=== PATIENT | male | born 1955 | race Caucasian/White ===

== ENCOUNTER 2017-12-18 20:30 | Outpatient (CLI) | payer OTHER | END 2017-12-18 20:31 | disposition home or self-care (01) | LOC: SLEEPLAB 20:30 | PROVIDERS: ATTEND Internal Medicine | DX: G47.33 Obstructive sleep apnea (adult) (pediatric) (principal); R09.89 Other specified symptoms and signs involving the circulatory and respiratory systems; R06.83 Snoring; F41.9 Anxiety disorder, unspecified; F32.9 Major depressive disorder, single episode, unspecified; G47.00 Insomnia, unspecified; I10 Essential (primary) hypertension; J44.9 Chronic obstructive pulmonary disease, unspecified; R09.02 Hypoxemia | CPT/HCPCS: 95811 ==

== ENCOUNTER 2021-04-04 10:07 | Outpatient (CLI) | payer OTHER | END 2021-04-04 10:08 | disposition home or self-care (01) | LOC: BICRAD 10:07 | PROVIDERS: ATTEND Internal Medicine Critical Care Medicine | DX: R06.00 Dyspnea, unspecified (principal) | CPT/HCPCS: 71046 ==

== ENCOUNTER 2021-05-06 15:11 | Inpatient (IN) | payer BC, SELFPAY ==
[~2021-05-06 15:11] MED LIST: Iopamidol 370 76% 100 ML VIAL ONE
[2021-05-06 16:01] LABS: #Lymphocytes 0.9 thou/uL (1.20-3.40); #Monocytes 0.9 thou/uL (0.11-0.59); #Neutrophils 8.7 thou/uL (1.40-6.50); %Basophils 0.1 % (0.0-1.0); %Eosinophils 0.2 % (0.0-10.0); %Lymphocytes 8.3 % (21.0-51.0); %Monocytes 8.2 % (0.0-10.0); %Neutrophils 83.2 % (42.0-75.0); Mean Corpuscular HGB CONC 32.5 g/dL (32.0-36.0); Mean Corpuscular Hemoglobin 29.8 pg (27.0-31.0); Mean Corpuscular Volume 91.7 fL (78.0-98.0); Mean Platelet Volume 7.1 fL (7.4-10.4); Platelet Count 285 thou/uL (130-400); RBC Distribution Width 12.9 % (11.5-14.5); Red Blood Cell (RBC) Count 4.69 mill/uL (4.70-6.10); White Blood Cell (WBC) Count 10.5 thou/uL (4.8-10.8)
[2021-05-06 16:24] LABS: ALT (SGPT) 23 U/L (8-55); AST (SGOT) 25 U/L (5-34); Alkaline Phosphatase 62 U/L (40-110); Anion Gap 14 mmol/L (10-20); BUN (Urea Nitrogen) 12 mg/dL (8.4-25.7); Bilirubin, Total 0.7 mg/dL (0.2-1.2); Calc. Creatinine Clearance 0 mL/min (70-130); Calcium 9.8 mg/dL (7.8-10.44); Carbon Dioxide 26 mmol/L (23-31); Chloride 104 mmol/L (98-107); Globulin 3.1 g/dL (2.4-3.5); Glucose 107 mg/dL (80-115); Potassium 4.6 mmol/L (3.5-5.1); Protein, Total 7.1 g/dL (5.8-8.1); Sodium 139 mmol/L (136-145)
[2021-05-06] MEDS ORDERED: Nitroglycerin 0.4 MG TAB 1 EACH ONE (16:29)
[2021-05-06] MEDS ORDERED: Aspirin Chewable 81 MG TAB ONE (16:29)
[2021-05-06] MEDS ORDERED: Nitroglycerin 2% Ointment 1 INCH/1 GM Packet ONE ×2 (16:31→16:32)
[2021-05-06] MEDS ORDERED: Verapamil 5 MG/2 ML VIAL ONE (16:40)
[2021-05-06] MEDS ORDERED: Nitroglycerin 100MG/250ML BOT 250 ML ONE (16:40)
[2021-05-06] MEDS ORDERED: Lidocaine 1% (PF) 30 ML VIAL ONE (16:40)
[2021-05-06] MEDS ORDERED: Heparin 10,000 UNITS/ 10 ML VIAL ONE (16:40)
[2021-05-06] MEDS ORDERED: Aspirin 325 MG TAB ONE (16:40)
[2021-05-06] MEDS ORDERED: Acetaminophen 325 MG TAB PO PRN (16:43)
[2021-05-06] MEDS ORDERED: Midazolam HCl 2 mg/2 ml Vial ONE (17:05)
[2021-05-06] MEDS ORDERED: Fentanyl 100 MCG/2 ML VIAL ONE (17:05)
[2021-05-06 17:17] LABS: CKMB 12.7 ng/mL (0-6.6)
[2021-05-06] MEDS ORDERED: Nitroglycerin 0.4 MG TAB (25 Tab Bottle) SL PRN (17:34)
[2021-05-06] MEDS ORDERED: Acetaminophen/Codeine 30-300mg Tablet PO PRN (17:34)
[2021-05-06] MEDS ORDERED: Sodium Chloride 0.9% 200 ML IV PRN (17:34)
[2021-05-06] MEDS ORDERED: Sodium Chloride 0.9% 500 ML IV SCH (17:45)
[2021-05-06 19:53] LABS: Troponin I 32.469 ng/mL (< 0.028)
[2021-05-06] MEDS ORDERED: Albuterol 200 PUFF (6.7GM INHALER) INH PRN (21:16)
[2021-05-06] MEDS: Atorvastatin Calcium 40 MG TAB PO SCH (21:29)
[2021-05-06] MEDS: Enoxaparin Sodium 80 MG/0.8 ML SYRINGE SC SCH (21:30)
[2021-05-06 23:24] LABS: Troponin I 29.824 ng/mL (< 0.028)
[2021-05-07] MEDS ORDERED: Albuterol 200 PUFF (6.7GM INHALER) INH PRN (01:23)
[2021-05-07 05:20] LABS: #Basophils 0.1 thou/uL (0.0-0.2); #Eosinphils 0.1 thou/uL (0.0-0.7); #Lymphocytes 1.5 thou/uL (1.20-3.40); #Monocytes 1.2 thou/uL (0.11-0.59); #Neutrophils 5.5 thou/uL (1.40-6.50); %Basophils 0.9 % (0.0-1.0); %Eosinophils 1.7 % (0.0-10.0); %Lymphocytes 18.1 % (21.0-51.0); %Monocytes 13.9 % (0.0-10.0); %Neutrophils 65.4 % (42.0-75.0); Hemoglobin 12.7 g/dL (14.0-18.0); Mean Corpuscular HGB CONC 33.9 g/dL (32.0-36.0); Mean Corpuscular Hemoglobin 31.1 pg (27.0-31.0); Mean Corpuscular Volume 91.8 fL (78.0-98.0); Mean Platelet Volume 7.5 fL (7.4-10.4); Platelet Count 238 thou/uL (130-400); RBC Distribution Width 12.9 % (11.5-14.5); Red Blood Cell (RBC) Count 4.09 mill/uL (4.70-6.10); White Blood Cell (WBC) Count 8.4 thou/uL (4.8-10.8)
[2021-05-07 05:25] LABS: Hemoglobin A1c 5.4 % (4.0-6.0)
[2021-05-07 05:44] LABS: Anion Gap 11 mmol/L (10-20); BUN (Urea Nitrogen) 12 mg/dL (8.4-25.7); Calc. Creatinine Clearance 98 mL/min (70-130); Carbon Dioxide 28 mmol/L (23-31); Chloride 105 mmol/L (98-107); Cholesterol 160 mg/dl (< 200 Desired); Glucose 88 mg/dL (80-115); HDL Cholesterol 40 mg/dL (>60 Neg Risk); LDL Cholesterol, Calculated 103 mg/dL; Potassium 3.7 mmol/L (3.5-5.1); Sodium 140 mmol/L (136-145); Triglycerides 86 mg/dL (Less than 150)
[2021-05-07] MEDS ORDERED: Budesonide 0.5 MG/2 ML NEB NEB SCH (09:00)
[2021-05-07] MEDS: Aspirin 325 MG TAB PO SCH (09:31)
[2021-05-07] MEDS: Enoxaparin Sodium 80 MG/0.8 ML SYRINGE SC SCH ×3 (09:32→21:07)
[2021-05-07] MEDS: Atorvastatin Calcium 40 MG TAB PO SCH (21:06)
[2021-05-08 05:24] LABS: Anion Gap 10 mmol/L (10-20); BUN (Urea Nitrogen) 13 mg/dL (8.4-25.7); Calc. Creatinine Clearance 88 mL/min (70-130); Calcium 9.1 mg/dL (7.8-10.44); Carbon Dioxide 29 mmol/L (23-31); Chloride 103 mmol/L (98-107); Glucose 76 mg/dL (80-115); Potassium 3.8 mmol/L (3.5-5.1); Sodium 138 mmol/L (136-145)
[2021-05-08] MEDS ORDERED: Communication Order-Pharmacy FS SCH (06:00)
[2021-05-08] MEDS: Budesonide 0.5 MG/2 ML NEB NEB SCH (07:16)
[2021-05-08 07:25] LABS: Hemoglobin 13.3 g/dL (14.0-18.0); Mean Corpuscular HGB CONC 31.7 g/dL (32.0-36.0); Mean Corpuscular Hemoglobin 29.4 pg (27.0-31.0); Mean Corpuscular Volume 92.8 fL (78.0-98.0); Mean Platelet Volume 7.3 fL (7.4-10.4); Platelet Count 265 thou/uL (130-400); RBC Distribution Width 12.8 % (11.5-14.5); Red Blood Cell (RBC) Count 4.52 mill/uL (4.70-6.10); White Blood Cell (WBC) Count 8.2 thou/uL (4.8-10.8)
[2021-05-08] MEDS ORDERED: predniSONE 20 MG TAB PO SCH (08:00)
[2021-05-08] MEDS ORDERED: Azithromycin 250 MG TAB PO SCH (09:00)
[2021-05-08 09:20] LABS: Band 4 % (5-11); Lymphocytes 18 % (21-51); MDiff Complete? YES; Monocytes 12 % (0-10); Neutrophil 66 % (42-75); RBC Morphology Normal
[2021-05-08] MEDS: Aspirin 325 MG TAB PO SCH (09:32)
[2021-05-08] MEDS: Enoxaparin Sodium 80 MG/0.8 ML SYRINGE SC SCH ×2 (09:33→21:55)
[2021-05-08] MEDS: Fluticasone Propionate Nasal Spray 16 gm Bottle NASAL SCH (09:33)
[2021-05-08] MEDS: Atorvastatin Calcium 40 MG TAB PO SCH (21:55)
[2021-05-09] MEDS ORDERED: CEFAZOLIN 2 GM in Premix Bag 1 BAG IVPB SCH (04:15)
[2021-05-09] MEDS ORDERED: Hydrocortisone Sod Succ/PF 250 mg/2 ml Vial SLOW IVP SCH (05:00)
[2021-05-09 05:37] LABS: Anion Gap 11 mmol/L (10-20); BUN (Urea Nitrogen) 20 mg/dL (8.4-25.7); Calc. Creatinine Clearance 79 mL/min (70-130); Calcium 9.5 mg/dL (7.8-10.44); Carbon Dioxide 30 mmol/L (23-31); Chloride 103 mmol/L (98-107); Glucose 88 mg/dL (80-115); Potassium 4.1 mmol/L (3.5-5.1); Sodium 140 mmol/L (136-145)
[2021-05-09] MEDS: Budesonide 0.5 MG/2 ML NEB NEB SCH (07:37)
[2021-05-09] MEDS ORDERED: Midazolam HCl 2 mg/2 ml Vial ONE ×2 (08:22→08:54)
[2021-05-09] MEDS ORDERED: Albumin 5% 500 ML ONE (08:51)
[2021-05-09] MEDS ORDERED: Fentanyl 250 MCG/5 ML VIAL ONE (08:54)
[2021-05-09] MEDS ORDERED: Heparin 10,000 UNITS/1 ML VIAL 30,000 UNITS in Sodium Chloride 0.9% 1,000 ML FS SCH (09:15)
[2021-05-09] MEDS ORDERED: Heparin 5,000 UNITS/ML VIAL ONE (09:49)
[2021-05-09] MEDS ORDERED: Sodium Bicarb 50 MEQ/50 ML Abboject 8.4% SYRINGE ONE (09:49)
[2021-05-09] MEDS ORDERED: Potassium Chloride 60 MEQ/30 ML VIAL ONE (09:49)
[2021-05-09] MEDS ORDERED: Dexamethasone 20 MG/5 ML VIAL ONE (09:49)
[2021-05-09] MEDS ORDERED: Papaverine 60 MG/2 ML VIAL ONE (09:49)
[2021-05-09] MEDS ORDERED: Calcium Chloride 1 GM/10 ML Abboject SYRINGE ONE (09:49)
[2021-05-09] MEDS ORDERED: Heparin 30,000 units/30 ml VIAL ONE (09:49)
[2021-05-09] MEDS ORDERED: Rocuronium Bromide 10 MG/ML (10ML VIAL) ONE (09:49)
[2021-05-09] MEDS ORDERED: PHENYLEPHRINE-NS 100 MCG/ML 10 ML SYRINGE ONE ×2 (09:49→11:22)
[2021-05-09] MEDS ORDERED: Ondansetron PF 4 MG/2 ML Vial ONE (09:49)
[2021-05-09] MEDS ORDERED: Thrombin 5000 UNITS/5 ML VIAL ONE (09:49)
[2021-05-09] MEDS ORDERED: PROPOFOL 200 MG/20 ML VIAL ONE (09:49)
[2021-05-09] MEDS ORDERED: Mannitol 12.5 GM/50 ML ONE (09:49)
[2021-05-09] MEDS ORDERED: Lidocaine 2% PF 100 mg/5 ml Syringe ONE (09:49)
[2021-05-09] MEDS ORDERED: Cardioplegic Soln 1,000 ML BAG ONE (09:49)
[2021-05-09] MEDS ORDERED: Magnesium Sulfate 1 GM/2 ML VIAL ONE (09:49)
[2021-05-09] MEDS ORDERED: Protamine Sulfate 250 MG/25 ML VIAL ONE (09:49)
[2021-05-09] MEDS ORDERED: Aminocaproic Acid 5 GM/20 ML VIAL ONE (09:49)
[2021-05-09] MEDS: Fluticasone Propionate Nasal Spray 16 gm Bottle NASAL SCH (10:15)
[2021-05-09] MEDS: Aspirin 325 MG TAB PO SCH (10:15)
[2021-05-09] MEDS ORDERED: Promethazine HCl 25 MG/ML VIAL IM PRN (13:39)
[2021-05-09] MEDS ORDERED: Ondansetron PF 4 MG/2 ML Vial IVP PRN (13:39)
[2021-05-09] MEDS ORDERED: Ventilator Sedation Protocol 1 EACH FS SCH (13:39)
[2021-05-09] MEDS ORDERED: Potassium Chloride 20 MEQ/100 ML PREMIX BAG IVPB PRN (13:39)
[2021-05-09] MEDS ORDERED: niCARdipine 25 MG in Sodium Chloride 0.9% 250 ML 250 ML IVPB PRN (13:39)
[2021-05-09] MEDS ORDERED: Fentanyl 100 MCG/2 ML VIAL SLOW IVP PRN ×2 (13:39)
[2021-05-09] MEDS ORDERED: Hetastarch 6% 500 ML 500 ML IVPB PRN (13:39)
[2021-05-09] MEDS ORDERED: Morphine 2 MG/ML VIAL SLOW IVP PRN (13:39)
[2021-05-09] MEDS ORDERED: Bisacodyl 5 MG TAB PO PRN (13:39)
[2021-05-09] MEDS ORDERED: DOPamine 400 MG/D5W 250 ML 250 ML IVPB PRN (13:39)
[2021-05-09] MEDS ORDERED: Mag-Al 1200 mg/1200 mg/30 ML UDCUP PO PRN (13:39)
[2021-05-09] MEDS ORDERED: Acetaminophen 325 MG TAB PO PRN (13:39)
[2021-05-09] MEDS ORDERED: Post-Op Insulin Drip Protocol IVPB ONE (13:39)
[2021-05-09] MEDS ORDERED: Nitroglycerin 50 MG/250 ML BOT 250 ML IVPB PRN (13:39)
[2021-05-09] MEDS ORDERED: hydrALAZINE 20 MG/ML VIAL SLOW IVP PRN (13:39)
[2021-05-09] MEDS ORDERED: Bisacodyl 10 MG SUPP PR PRN (13:39)
[2021-05-09] MEDS: Lactated Ringer's 1,000 ML IV SCH (13:45)
[2021-05-09] MEDS ORDERED: Fentanyl CADD 100 ML ONE (13:49)
[2021-05-09 13:58] LABS: #Lymphocytes 0.4 thou/uL (1.20-3.40); #Monocytes 0.8 thou/uL (0.11-0.59); #Neutrophils 11.5 thou/uL (1.40-6.50); %Eosinophils 0.4 % (0.0-10.0); %Lymphocytes 3.3 % (21.0-51.0); %Monocytes 6.4 % (0.0-10.0); %Neutrophils 89.9 % (42.0-75.0); Hemoglobin 10.1 g/dL (14.0-18.0); Mean Corpuscular HGB CONC 33.5 g/dL (32.0-36.0); Mean Corpuscular Hemoglobin 30.8 pg (27.0-31.0); Mean Platelet Volume 7.5 fL (7.4-10.4); Platelet Count 164 thou/uL (130-400); RBC Distribution Width 12.5 % (11.5-14.5); Red Blood Cell (RBC) Count 3.29 mill/uL (4.70-6.10); White Blood Cell (WBC) Count 12.8 thou/uL (4.8-10.8)
[2021-05-09] MEDS ORDERED: Dextrose 50% Abboject 50 ML SYRINGE SLOW IVP PRN (14:00)
[2021-05-09] MEDS ORDERED: Propofol BOLUS 1,000 MG/100 ML VIAL IV PRN (14:00)
[2021-05-09] MEDS ORDERED: Fentanyl CADD 100 ML IV SCH (14:00)
[2021-05-09] MEDS ORDERED: Lantus 1000 UNITS/10 ML VIAL SC PRN (14:00)
[2021-05-09] MEDS ORDERED: HUMULIN R 100 UNITS in Sodium Chloride 0.9% 100 ML IVPB SCH (14:00)
[2021-05-09] MEDS ORDERED: Fentanyl BOLUS 250 ML IVPB PRN (14:00)
[2021-05-09] MEDS ORDERED: Dextrose 5% in Water 1,000 ML IV PRN (14:00)
[2021-05-09 14:02] LABS: INR-International Normal Ratio 1.3; PTT 30.1 sec (22.9-36.1); Prothrombin Time 16.5 sec (12.0-14.7)
[2021-05-09 14:08] LABS: Actual Bicarbonate (HCO3a) 25.5 mEq/L (22-28); Base Excess (BEa) -1.6 mEq/L (-2.0 to +3.0); CO2 Tension 54.1 mmHg (35.0-45.0); Calcium, Ionized (arterial) 1.14 mmol/L (1.12-1.30); Carboxyhemoglobin (COHb) 0.5 gm% (0.0-3.0); O2 Tension (PaO2), arterial 82.3 mmHg (> 80.0); Potassium - ABG Lab 4.43 mmol/L (3.70-5.30); pH, Arterial 7.29 (7.35-7.45)
[2021-05-09 14:10] LABS: Puncture Site Arterial Line
[2021-05-09 14:11] LABS: ALV-art Gradient 206.575 mmHg (0-20)
[2021-05-09 14:14] LABS: Anion Gap 10 mmol/L (10-20); BUN (Urea Nitrogen) 18 mg/dL (8.4-25.7); Calc. Creatinine Clearance 91 mL/min (70-130); Calcium 7.9 mg/dL (7.8-10.44); Carbon Dioxide 25 mmol/L (23-31); Chloride 110 mmol/L (98-107); Glucose 137 mg/dL (80-115); Potassium 4.5 mmol/L (3.5-5.1); Sodium 140 mmol/L (136-145)
[2021-05-09] MEDS: Insulin Regular 300 UNITS/3 ML VIAL SC PRN ×2 (14:32→16:25)
[2021-05-09] MEDS: Propofol 1,000 MG/100 ML VIAL IV PRN (14:32)
[2021-05-09] MEDS: methylPREDNISolone Sod Succ 40 MG VIAL IVP SCH ×2 (14:33→22:24)
[2021-05-09] MEDS: CEFAZOLIN 2 GM in Premix Bag 1 BAG IVPB SCH (14:42)
[2021-05-09] MEDS: Norepinephrine 8 MG/0.9% NS 250 ML IVPB PRN (16:33)
[2021-05-09] MEDS: Atorvastatin Calcium 20 MG TAB PO SCH (20:08)
[2021-05-09] MEDS: Famotidine/PF 20 mg/2ml Vial SLOW IVP SCH (20:09)
[2021-05-09 20:30] LABS: Hemoglobin 10.9 g/dL (14.0-18.0)
[2021-05-09 20:45] LABS: Potassium 4.4 mmol/L (3.5-5.1)
[2021-05-09 21:19] LABS: Glucose 100 mg/dL (80-115)
[2021-05-10] MEDS: CEFAZOLIN 2 GM in Premix Bag 1 BAG IVPB SCH ×2 (00:25→07:59)
[2021-05-10] MEDS: Propofol 1,000 MG/100 ML VIAL IV PRN (03:00)
[2021-05-10 03:52] LABS: #Lymphocytes 0.8 thou/uL (1.20-3.40); #Monocytes 1.7 thou/uL (0.11-0.59); #Neutrophils 15.6 thou/uL (1.40-6.50); %Basophils 0.1 % (0.0-1.0); %Eosinophils 0.1 % (0.0-10.0); %Lymphocytes 4.3 % (21.0-51.0); %Monocytes 9.2 % (0.0-10.0); %Neutrophils 86.4 % (42.0-75.0); Mean Corpuscular HGB CONC 33.5 g/dL (32.0-36.0); Mean Corpuscular Hemoglobin 30.8 pg (27.0-31.0); Mean Platelet Volume 7.6 fL (7.4-10.4); Platelet Count 228 thou/uL (130-400); RBC Distribution Width 12.6 % (11.5-14.5); Red Blood Cell (RBC) Count 3.55 mill/uL (4.70-6.10); White Blood Cell (WBC) Count 18.1 thou/uL (4.8-10.8)
[2021-05-10 04:12] LABS: Anion Gap 11 mmol/L (10-20); BUN (Urea Nitrogen) 14 mg/dL (8.4-25.7); Calc. Creatinine Clearance 92 mL/min (70-130); Calcium 8.3 mg/dL (7.8-10.44); Carbon Dioxide 27 mmol/L (23-31); Chloride 106 mmol/L (98-107); Glucose 116 mg/dL (80-115); Potassium 4.3 mmol/L (3.5-5.1); Sodium 140 mmol/L (136-145)
[2021-05-10] MEDS: Lactated Ringer's 1,000 ML IV SCH ×4 (06:00→21:10)
[2021-05-10] MEDS: methylPREDNISolone Sod Succ 40 MG VIAL IVP SCH ×3 (06:01→21:07)
[2021-05-10 06:25] LABS: Glucose 122 mg/dL (80-115)
[2021-05-10] MEDS: Morphine 2 MG/ML VIAL SLOW IVP PRN ×3 (07:58→21:01)
[2021-05-10] MEDS: Famotidine/PF 20 mg/2ml Vial SLOW IVP SCH ×2 (07:59→21:08)
[2021-05-10] MEDS: Aspirin 325 MG TAB PO SCH (07:59)
[2021-05-10] MEDS: Lorazepam 2 MG/ML VIAL SLOW IVP PRN ×3 (08:00→21:03)
[2021-05-10] MEDS: Guaifenesin DM 100-10/5 ML UDCUP PO PRN (08:30)
[2021-05-10] MEDS ORDERED: Magnesium Sulfate 3 GM in Sodium Chloride 0.9% 100 ML IVPB SCH (10:15)
[2021-05-10] MEDS: HYDROcodone/Acetaminophen 5/325 mg Tablet PO PRN ×2 (12:16→16:21)
[2021-05-10] MEDS: Norepinephrine 8 MG/0.9% NS 250 ML IVPB PRN (16:29)
[2021-05-10] MEDS: Atorvastatin Calcium 20 MG TAB PO SCH (21:09)
[2021-05-11] MEDS: Morphine 2 MG/ML VIAL SLOW IVP PRN (04:45)
[2021-05-11] MEDS: Lorazepam 2 MG/ML VIAL SLOW IVP PRN (04:45)
[2021-05-11 04:47] LABS: Hemoglobin 10.7 g/dL (14.0-18.0); Mean Corpuscular HGB CONC 32.3 g/dL (32.0-36.0); Mean Corpuscular Volume 92.8 fL (78.0-98.0); Mean Platelet Volume 7.9 fL (7.4-10.4); Platelet Count 194 thou/uL (130-400); RBC Distribution Width 12.5 % (11.5-14.5); Red Blood Cell (RBC) Count 3.57 mill/uL (4.70-6.10); White Blood Cell (WBC) Count 16.4 thou/uL (4.8-10.8)
[2021-05-11 04:55] LABS: Anion Gap 9 mmol/L (10-20); BUN (Urea Nitrogen) 12 mg/dL (8.4-25.7); Calc. Creatinine Clearance 105 mL/min (70-130); Calcium 8.6 mg/dL (7.8-10.44); Carbon Dioxide 31 mmol/L (23-31); Chloride 106 mmol/L (98-107); Glucose 132 mg/dL (80-115); Potassium 4.2 mmol/L (3.5-5.1); Sodium 142 mmol/L (136-145)
[2021-05-11 05:12] LABS: Band 5 % (5-11); Hypochromia SLIGHT = 6-15 cells (100X) (0-5/hpf); Lymphocytes 14 % (21-51); MDiff Complete? YES; Monocytes 5 % (0-10); Neutrophil 76 % (42-75); Platelet Morphology Comment Appears Adequate
[2021-05-11] MEDS: methylPREDNISolone Sod Succ 40 MG VIAL IVP SCH ×3 (05:31→21:15)
[2021-05-11] MEDS: Guaifenesin DM 100-10/5 ML UDCUP PO PRN ×2 (10:17→21:10)
[2021-05-11] MEDS: Aspirin 325 MG TAB PO SCH (10:17)
[2021-05-11] MEDS: HYDROcodone/Acetaminophen 5/325 mg Tablet PO PRN ×2 (10:17→21:11)
[2021-05-11] MEDS: Famotidine/PF 20 mg/2ml Vial SLOW IVP SCH ×2 (10:17→21:14)
[2021-05-11] MEDS: Lactated Ringer's 1,000 ML IV SCH (12:42)
[2021-05-11] MEDS: Budesonide 0.5 MG/2 ML NEB NEB SCH (18:13)
[2021-05-11] MEDS: Atorvastatin Calcium 20 MG TAB PO SCH (21:14)
[2021-05-12] MEDS: HYDROcodone/Acetaminophen 5/325 mg Tablet PO PRN (03:25)
[2021-05-12 04:09] LABS: Hemoglobin 11.1 g/dL (14.0-18.0); Mean Corpuscular HGB CONC 32.4 g/dL (32.0-36.0); Mean Corpuscular Hemoglobin 29.9 pg (27.0-31.0); Mean Corpuscular Volume 92.2 fL (78.0-98.0); Mean Platelet Volume 7.9 fL (7.4-10.4); Platelet Count 196 thou/uL (130-400); RBC Distribution Width 12.7 % (11.5-14.5); White Blood Cell (WBC) Count 15.9 thou/uL (4.8-10.8)
[2021-05-12 04:21] LABS: Anion Gap 10 mmol/L (10-20); BUN (Urea Nitrogen) 18 mg/dL (8.4-25.7); Calc. Creatinine Clearance 100 mL/min (70-130); Calcium 8.8 mg/dL (7.8-10.44); Carbon Dioxide 31 mmol/L (23-31); Chloride 104 mmol/L (98-107); Glucose 101 mg/dL (80-115); Potassium 4.4 mmol/L (3.5-5.1); Sodium 141 mmol/L (136-145)
[2021-05-12 04:30] LABS: Lymphocytes 4 % (21-51); MDiff Complete? YES; Monocytes 4 % (0-10); Neutrophil 92 % (42-75); Platelet Morphology Comment Appears Adequate
[2021-05-12] MEDS: methylPREDNISolone Sod Succ 40 MG VIAL IVP SCH ×3 (05:15→21:50)
[2021-05-12] MEDS: Lactated Ringer's 1,000 ML IV SCH ×2 (05:22→21:54)
[2021-05-12] MEDS: Budesonide 0.5 MG/2 ML NEB NEB SCH ×2 (07:15→18:36)
[2021-05-12] MEDS: Aspirin 325 MG TAB PO SCH (07:48)
[2021-05-12] MEDS: Famotidine/PF 20 mg/2ml Vial SLOW IVP SCH ×2 (07:48→19:39)
[2021-05-12] MEDS ORDERED: Furosemide 20 MG/2 ML VIAL SLOW IVP SCH (09:45)
[2021-05-12] MEDS ORDERED: Carvedilol 3.125 MG TAB PO SCH (10:45)
[2021-05-12] MEDS: Carvedilol 3.125 MG TAB PO SCH (16:04)
[2021-05-12] MEDS: guaiFENesin ER 600 MG TAB PO SCH (19:39)
[2021-05-12] MEDS: Atorvastatin Calcium 20 MG TAB PO SCH (19:39)
[2021-05-13] MEDS: methylPREDNISolone Sod Succ 40 MG VIAL IVP SCH ×3 (05:50→21:25)
[2021-05-13 05:57] LABS: Band 1 % (5-11); Hypochromia SLIGHT = 6-15 cells (100X) (0-5/hpf); Lymphocytes 6 % (21-51); MDiff Complete? YES; Mean Corpuscular HGB CONC 31.5 g/dL (32.0-36.0); Mean Corpuscular Hemoglobin 29.4 pg (27.0-31.0); Mean Corpuscular Volume 93.2 fL (78.0-98.0); Mean Platelet Volume 8.6 fL (7.4-10.4); Monocytes 17 % (0-10); Neutrophil 76 % (42-75); Platelet Count 210 thou/uL (130-400); Platelet Morphology Comment Appears Adequate; RBC Distribution Width 12.7 % (11.5-14.5); Red Blood Cell (RBC) Count 3.75 mill/uL (4.70-6.10)
[2021-05-13 06:07] LABS: Anion Gap 11 mmol/L (10-20); BUN (Urea Nitrogen) 27 mg/dL (8.4-25.7); Calc. Creatinine Clearance 99 mL/min (70-130); Calcium 8.7 mg/dL (7.8-10.44); Carbon Dioxide 29 mmol/L (23-31); Chloride 102 mmol/L (98-107); Glucose 125 mg/dL (80-115); Potassium 4.4 mmol/L (3.5-5.1); Sodium 138 mmol/L (136-145)
[2021-05-13] MEDS: Famotidine/PF 20 mg/2ml Vial SLOW IVP SCH (07:19)
[2021-05-13] MEDS: guaiFENesin ER 600 MG TAB PO SCH ×2 (07:20→21:24)
[2021-05-13] MEDS: Aspirin 325 MG TAB PO SCH (07:20)
[2021-05-13] MEDS: Furosemide 40 MG TAB PO SCH (07:20)
[2021-05-13] MEDS: Potassium Chloride 10 MEQ TAB PO SCH (07:20)
[2021-05-13] MEDS: Carvedilol 3.125 MG TAB PO SCH ×3 (07:20→18:53)
[2021-05-13] MEDS: Budesonide 0.5 MG/2 ML NEB NEB SCH ×2 (08:03→18:34)
[2021-05-13 10:56] VITALS: BMI 25.6
[2021-05-13] MEDS ORDERED: Guaifenesin DM 100-10/5 ML UDCUP PO PRN (14:42)
[2021-05-13] MEDS ORDERED: Aspirin 325 mg Enteric Coated Tablet PO SCH (14:42)
[2021-05-13] MEDS ORDERED: Nitroglycerin 0.4 MG TAB (25 Tab Bottle) SL PRN (14:42)
[2021-05-13] MEDS: Famotidine 20 MG TAB PO SCH ×2 (15:13→21:25)
[2021-05-13] MEDS: HYDROcodone/Acetaminophen 5/325 mg Tablet PO PRN ×2 (15:37→21:24)
[2021-05-13] MEDS: Atorvastatin Calcium 20 MG TAB PO SCH (21:24)
[2021-05-14 05:01] LABS: #Eosinphils 0.1 thou/uL (0.0-0.7); #Lymphocytes 0.8 thou/uL (1.20-3.40); #Monocytes 0.9 thou/uL (0.11-0.59); #Neutrophils 14.3 thou/uL (1.40-6.50); %Basophils 0.1 % (0.0-1.0); %Eosinophils 0.4 % (0.0-10.0); %Lymphocytes 4.7 % (21.0-51.0); %Monocytes 5.7 % (0.0-10.0); %Neutrophils 89.2 % (42.0-75.0); Hemoglobin 11.8 g/dL (14.0-18.0); Mean Corpuscular HGB CONC 33.4 g/dL (32.0-36.0); Mean Corpuscular Hemoglobin 30.5 pg (27.0-31.0); Mean Corpuscular Volume 91.4 fL (78.0-98.0); Platelet Count 256 thou/uL (130-400); RBC Distribution Width 12.6 % (11.5-14.5); Red Blood Cell (RBC) Count 3.85 mill/uL (4.70-6.10); White Blood Cell (WBC) Count 16.1 thou/uL (4.8-10.8)
[2021-05-14 05:29] LABS: Anion Gap 14 mmol/L (10-20); BUN (Urea Nitrogen) 29 mg/dL (8.4-25.7); Calc. Creatinine Clearance 98 mL/min (70-130); Calcium 8.9 mg/dL (7.8-10.44); Carbon Dioxide 25 mmol/L (23-31); Chloride 102 mmol/L (98-107); Glucose 118 mg/dL (80-115); Potassium 4.4 mmol/L (3.5-5.1); Sodium 137 mmol/L (136-145)
[2021-05-14] MEDS: methylPREDNISolone Sod Succ 40 MG VIAL IVP SCH ×2 (05:34→15:06)
[2021-05-14] MEDS: Budesonide 0.5 MG/2 ML NEB NEB SCH ×3 (08:15→18:22)
[2021-05-14] MEDS: Aspirin 325 MG TAB PO SCH (10:04)
[2021-05-14] MEDS: Famotidine 20 MG TAB PO SCH ×2 (10:05→20:34)
[2021-05-14] MEDS: Carvedilol 3.125 MG TAB PO SCH ×2 (10:08→18:19)
[2021-05-14] MEDS: Potassium Chloride 10 MEQ TAB PO SCH (10:08)
[2021-05-14] MEDS: guaiFENesin ER 600 MG TAB PO SCH ×2 (10:09→20:33)
[2021-05-14] MEDS: Furosemide 40 MG TAB PO SCH (10:09)
[2021-05-14] MEDS: Sodium Chloride 0.9% 10 ML ONE (10:10)
[2021-05-14] MEDS: Polyethylene Glycol 3350 17 GM Packet PO SCH (10:10)
[2021-05-14] MEDS: HYDROcodone/Acetaminophen 5/325 mg Tablet PO PRN ×2 (10:34→20:32)
[2021-05-14] MEDS ORDERED: Melatonin 3 MG TAB PO PRN (17:23)
[2021-05-14] MEDS: Atorvastatin Calcium 20 MG TAB PO SCH (20:35)
[2021-05-15] MEDS: HYDROcodone/Acetaminophen 5/325 mg Tablet PO PRN ×2 (03:43→10:06)
[2021-05-15] MEDS: Budesonide 0.5 MG/2 ML NEB NEB SCH (07:47)
[2021-05-15] MEDS ORDERED: predniSONE 20 MG TAB PO SCH (08:00)
[2021-05-15] MEDS: Carvedilol 3.125 MG TAB PO SCH (09:22)
[2021-05-15] MEDS: Furosemide 40 MG TAB PO SCH (09:22)
[2021-05-15] MEDS: Famotidine 20 MG TAB PO SCH (09:22)
[2021-05-15] MEDS: Aspirin 325 MG TAB PO SCH (09:22)
[2021-05-15] MEDS: Polyethylene Glycol 3350 17 GM Packet PO SCH (09:23)
[2021-05-15] MEDS: Potassium Chloride 10 MEQ TAB PO SCH (09:23)
[2021-05-15] MEDS: guaiFENesin ER 600 MG TAB PO SCH (09:23)
[2021-05-15] MEDS: Sodium Chloride 0.9% 10 ML ONE (09:24)
[2021-05-15 10:16] VITALS: BP 123/82; TEMP 97.8
== END 2021-05-15 11:50 | disposition home or self-care (01) | DRG 233 ==
LOC: ERS 15:11 → SURG A 16:36 → 2NO 16:59 → CCU 05-09 08:04 → 2NO 05-13 14:18
PROVIDERS: ADMIT Family Medicine; ATTEND Family Medicine
PROC: 4A023N7 Measurement of Cardiac Sampling and Pressure, Left Heart, Percutaneous Approach (ICD-10-PCS; principal; 2021-05-06)
PROC: B2111ZZ Fluoroscopy of Multiple Coronary Arteries using Low Osmolar Contrast (ICD-10-PCS; 2021-05-06)
PROC: 02100Z9 Bypass Coronary Artery, One Artery from Left Internal Mammary, Open Approach (ICD-10-PCS; 2021-05-09)
PROC: 021209W Bypass Coronary Artery, Three Arteries from Aorta with Autologous Venous Tissue, Open Approach (ICD-10-PCS; 2021-05-09)
PROC: 06BQ4ZZ Excision of Left Saphenous Vein, Percutaneous Endoscopic Approach (ICD-10-PCS; 2021-05-09)
PROC: 06BP4ZZ Excision of Right Saphenous Vein, Percutaneous Endoscopic Approach (ICD-10-PCS; 2021-05-09)
PROC: 5A1221Z Performance of Cardiac Output, Continuous (ICD-10-PCS; 2021-05-09)
PROC: 5A1945Z Respiratory Ventilation, 24-96 Consecutive Hours (ICD-10-PCS; 2021-05-09)
PROC: 0BH18EZ Insertion of Endotracheal Airway into Trachea, Via Natural or Artificial Opening Endoscopic (ICD-10-PCS; 2021-05-09)
DX: I21.09 ST elevation (STEMI) myocardial infarction involving other coronary artery of anterior wall (principal); J96.90 Respiratory failure, unspecified, unspecified whether with hypoxia or hypercapnia; I50.22 Chronic systolic (congestive) heart failure; F19.20 Other psychoactive substance dependence, uncomplicated; J44.9 Chronic obstructive pulmonary disease, unspecified; I25.110 Atherosclerotic heart disease of native coronary artery with unstable angina pectoris; J98.01 Acute bronchospasm; I11.0 Hypertensive heart disease with heart failure; K21.9 Gastro-esophageal reflux disease without esophagitis; I25.5 Ischemic cardiomyopathy; F41.9 Anxiety disorder, unspecified; I48.91 Unspecified atrial fibrillation; Z86.718 Personal history of other venous thrombosis and embolism; I25.2 Old myocardial infarction; Z88.1 Allergy status to other antibiotic agents; Z79.899 Other long term (current) drug therapy; Z87.891 Personal history of nicotine dependence
CPT/HCPCS: 36415; 36416; 36430; 71045; 80048; 80053; 80061; 82553; 82805; 83036; 84443; 84484; 85025; 85610; 85730; 86850; 86900; 86901; 93005; 93010; 93306; 93458; 93798; 94002; 94003; 94640; 97139; 99152; 99153; J0690; J1100; J1642; J1644; J1650; J1720; J1815; J1940; J2001; J2060; J2150; J2250; J2270; J2405; J2440; J2704; J2720; J2920; J3010; J3370; J3475; J3480; J3490; J7512; J7620; J7626; P9045; Q9967; S0017; S0028